=== PATIENT | female | born 2005 | race Caucasian/White ===

== ENCOUNTER → 2024-05-03 13:51 | Outpatient (REF) | payer BC, SELFPAY ==
[2024-05-03 15:40] LABS: % Basophils 0.5 % (0-2); % Eosinophils 1.3 % (0-6); % Immature Granulocytes 0.3 % (0-0.5); % Lymphocytes 22.2 % (20.5-51.1); % Neutrophils 70.7 % (42.2-75.2); Absolute Basophils 0.1 10^3/uL (0-0.2); Absolute Eosinophils 0.2 10^3/uL (0-0.7); Absolute Lymphocytes 2.7 10^3/uL (1.2-3.4); Absolute Monocytes 0.6 10^3/uL (0.1-0.6); Absolute Neutrophils 8.5 10^3/uL (1.4-6.5); Hematocrit 41.3 % (37.0-47.0); Hemoglobin 13.9 g/dL (12.0-16.0); Mean Corp Hgb Conc. 33.7 g/dL (33.0-37.0); Mean Corpuscular Hgb 28.4 pg (27.0-31.0); Mean Corpuscular Volume 84.5 fL (81.0-99.0); Nucleated Red Blood Cells % 0 %; Platelet Count 428 10^3/uL (130-400); Red Blood Cell Count 4.89 10^6/uL (4.20-5.40); Red Cell Dist. Width 13.2 % (11.5-14.5)
[2024-05-03 16:02] LABS: ALT (SGPT) 16 U/L (0-35); AST (SGOT) 18 U/L (14-36); Alkaline Phosphatase 61 U/L (38-126); Blood Urea Nitrogen 15 mg/dl (7-17); Calcium 10.1 mg/dl (8.4-10.2); Carbon Dioxide 27 mmol/L (22-30); Chloride 101 mmol/L (98-107); Glucose 85 mg/dl (70-99); Potassium 4.6 mmol/L (3.5-5.1); Sodium 140 mmol/L (135-145); Total Bilirubin 0.4 mg/dl (0.2-1.3); Total Protein 8.1 g/dl (6.3-8.2); eGFR > 60.00
[2024-05-03 16:30] LABS: TSH Reflex To Free T4 1.44 uIU/ml (0.47-4.68)
[2024-05-04 03:38] LABS: IgA 231 mg/dl (70-400)
[2024-05-04 14:58] LABS: tTG IgA Antibody 5.7 EU/ml (0-19); tTG IgG Antibody 11.3 EU/ml (0-19)
[2024-05-06 02:06] LABS: Endomysial IgA Antibody Titer <1:10 (<1:10)
== END ==
LOC: REG 13:51
PROVIDERS: ATTENDING PHYSICIAN Internal Medicine Gastroenterology; FAMILY PHYSICIAN Internal Medicine
DX: K52.9 Noninfective gastroenteritis and colitis, unspecified (principal)
CPT/HCPCS: 36415; 80053; 82784; 83516; 84443; 85025; 86140; 86231

== ENCOUNTER 2024-08-13 17:32 | Emergency (ER) | payer BC, SELFPAY ==
[2024-08-13] VITALS (7 sets, daily range): BP systolic 111–147; BP diastolic 61–90
[2024-08-13 19:23] LABS: % Basophils 0.6 % (0-2); % Eosinophils 0.7 % (0-6); % Immature Granulocytes 0.3 % (0-0.5); % Monocytes 8.4 % (1.7-9.3); Absolute Eosinophils 0.1 10^3/uL (0-0.7); Absolute Lymphocytes 1.7 10^3/uL (1.2-3.4); Absolute Monocytes 0.6 10^3/uL (0.1-0.6); Absolute Neutrophils 4.8 10^3/uL (1.4-6.5); Hematocrit 41.1 % (37.0-47.0); Hemoglobin 14.4 g/dL (12.0-16.0); Mean Corpuscular Hgb 28.2 pg (27.0-31.0); Mean Corpuscular Volume 80.6 fL (81.0-99.0); Mean Platelet Volume 9.5 fL (7.4-10.4); Nucleated Red Blood Cells % 0 %; Platelet Count 285 10^3/uL (130-400); Red Cell Dist. Width 13.1 % (11.5-14.5); White Blood Cell Count 7.2 10^3/uL (4.8-10.8)
[2024-08-13 19:41] LABS: ALT (SGPT) 20 U/L (0-35); AST (SGOT) 18 U/L (14-36); Albumin 4.2 g/dl (3.5-5.0); Alkaline Phosphatase 72 U/L (38-126); Blood Urea Nitrogen 14 mg/dl (7-17); Calcium 9.5 mg/dl (8.4-10.2); Carbon Dioxide 19 mmol/L (22-30); Chloride 106 mmol/L (98-107); Glucose 98 mg/dl (70-99); Potassium 3.9 mmol/L (3.5-5.1); Sodium 141 mmol/L (135-145); Total Bilirubin 0.7 mg/dl (0.2-1.3); Total Protein 7.5 g/dl (6.3-8.2); eGFR > 60.00
[2024-08-13 19:45] LABS: Monotest Negative (Negative)
[2024-08-13 19:52] LABS: HCG, Serum Qualitative Screen Negative
[2024-08-13 19:53] LABS: COVID-19 Antigen Negative (Negative)
--- NOTE | 2024-08-13 19:59 | ED.GENMED ---
History of Present Illness
General
Chief Complaint: Abdominal Symptoms
Source: patient and family (Mother and sister at bedside)
Exam Limitations: none
Time Seen by Provider: 08/13/24 19:23
Nursing documentation reviewed up to this point in time: agreed with
History of Present Illness
History of Present Illness:
Patient is a 19-year-old female presenting to the emergency department with 2 days of nausea, vomiting, and diarrhea. Patient reports waking up yesterday morning with vomiting which seem to be improving. She also has had multiple episodes of
nonbloody diarrhea which has persisted throughout today. Patient is concerned that she is becoming dehydrated as she has been unable to tolerate p.o. food/fluid intake. She did have a temp at home of 100 F. Patient denies any abdominal pain,
dysuria, chest pain, or shortness of breath. She did begin to have some pain in her upper back today.
Of note�patient states she was with her friend earlier this weekend who is displaying very similar symptoms. They were also found to be positive for mono.
Review of Systems
Review of Systems
Allergies reviewed?: Yes
All Other Systems: ROS reviewed and negative except as documented in HPI and ROS
Phy Exam
Physical Exam
Physical Exam:
Vitals: Mildly hypertensive, otherwise vital signs stable. Afebrile
General: Patient is very well appearing, no acute distress. Nontoxic appearing
Skin: Warm and dry, no rashes or lesions
Head: Normocephalic, atraumatic
Eyes: Sclera nonicteric. EOMs intact. No nystagmus.
Throat: Protecting airway
Neck: Normal ROM, no cervical spine tenderness, no meningismus
Cardiac: Regular rate and rhythm, no murmurs. Mild reproducible tenderness in mid upper back.
Pulm: Normal respiratory effort, no wheezes, rales, rhonchi heard on exam.
Abdomen: Abdomen soft. No abdominal tenderness. Specifically no tenderness McBurney's point. Negative Vitale sign. No CVA tenderness.
Extremities: No evidence of cyanosis or edema. Palpable DP pulses.
Neuro: AAOx3. Grossly intact.
Psychiatric: Normal affect.
Course
Orders/Labs/Results
Orders:
Orders
08/13/24 19:04
Complete Blood Count/With Diff Urgent
Comprehensive Metabolic Panel Urgent
HCG, Serum Qualitative Screen Urgent
Comment: ADD ON
Monotest Urgent
INF RAPID [Influenza A+B Rapid Molecular] Urgent
APPLE Source: Nasal Swab
Specimen Description:
08/13/24 19:11
COVID-19 Antigen Urgent
Source: Nasal Swab
08/13/24 19:33
Add On- LAB Urgent
Tests Added?: serum beta qual
08/13/24 19:53
0.9% Sodium Chloride 1000 ml [Nss] 1,000 ml IV BOLUS
Famotidine [Pepcid] 20 mg IV NOW STA
Ketorolac [Toradol] 15 mg IV NOW STA
Ondansetron Injectable [Zofran] 4 mg IV NOW STA
CR Chest - 2 Views Urgent
Comment:
Reason For Exam: Upper back pain
Abnormal Lab Results
08/13/24
19:04
MCV 80.6 L fL
(81.0-99.0)
Carbon Dioxide 19 L mmol/L
(22-30)
08/13/24 19:04
08/13/24 19:04
Vital Signs
Initial and Last Documented VS:
Initial Vital Signs
Temp Pulse Resp BP Pulse Ox
97.9 F 96 20 130/87 98
08/13/24 17:45 08/13/24 17:45 08/13/24 17:45 08/13/24 17:45 08/13/24 17:45
Last Documented Vital Signs
Temp Pulse Resp BP Pulse Ox
97.9 F 83 16 132/79 98
08/13/24 17:45 08/13/24 22:49 08/13/24 22:49 08/13/24 22:49 08/13/24 22:15
MDM/Problems Addressed
Differential Diagnosis Includes:
Not limited to: Viral gastroenteritis, colitis, acute viral syndrome, dehydration, electrolyte derangements, appendicitis, etc.
MDM/Problems Addressed:
Patient is a 19 y.o F presenting with two days of nausea, vomiting, and diarrhea associated with fevers at home. No abdominal pain, urinary symptoms, chest pain or shortness of breath. She does have minimal upper back discomfort which she noticed
today. Patient did have close contact with a friend who now is displaying very similar symptoms.
Vitals and physical exam as above. Patient overall well appearing in no apparent distress. Cardio/pulmonary assessment unremarkable. She does have very minimal reproducible tenderness in mid upper back, which I suspect to be likely musculoskeletal
in origin. Benign abdominal exam without focal tenderness. Labs were initiated in triage without any clinically significant abnormalities. There is no leukocytosis or left shift. No electrolyte abnormalities. Given patient afebrile with benign
abdominal exam and no leukocytosis, low suspicion for acute intra-abdominal infectious process. Do not feel CT warranted at this time. Will check CXR given upper back pain. Symptomatic treatment for now and reassess.
Update: In to reassess patient at bedside who is feeling much better. Her upper back pain has resolved completely with toradol. She is no longer nauseous and has had no episodes of vomiting. CXR without acute findings.
Update: Patient has received 1L NSS. Abdomen remains soft and nontender. Patient is well and comfortable appearing. She is tolerating water without vomiting. Given recent sick contact and benign abdominal tenderness � ultimately suspect viral
gastroenteritis. Ultimately �feel patient stable for discharge home. Return precautions discussed. She will follow w/ G.I. as scheduled. Patient and patient�s family comfortable w/ plan. All questions answered.
Chronic conditions affecting care:
N/A
Acute Exacerbation and/or Progression of Chronic Illness:
N/A
*Radiology
Radiology exam reviewed: preliminary read by ED provider (Chest x-ray reviewed by me-no acute abnormalities) and radiology read reviewed
*Pulse Oximetry
Patient hypoxic: no
*EKG
Interpreted by ED Provider?: NA
*Java Tech Lead Interpretation
Rate: Java Tech Lead- N/A
*Critical Care Note
Total Time (30-74mins, 75-104mins- exclusive of procedures): Not Applicable
ED Attending Note
-
Portions of this chart may have been created with voice recognition software.� Occasional wrong word or��sound alike� substitutions may have occurred due to the inherent limitations of voice recognition software.
Discharge Plan
Departure
Patient Disposition: Home (Routine Discharge)
Date of Disposition: 08/13/24
Time of Disposition: 22:17
Patient with high blood pressure during this ER visit?: No
Condition: Good
Covid-19: Not Applicable
Discharge Problem:
Nausea, vomiting, and diarrhea
Instructions: Diarrhea in teens and adults, Dehydration, Adult (DC), Nausea and Vomiting, Adult (DC)
Prescriptions:
New
ondansetron 4 mg tablet,disintegrating
4 mg PO Q8H PRN (Reason: nausea and vomiting) Qty: 5 0RF
Referrals:
Viky Medeiros MD [Active] - Keep scheduled appt
Kisha Arreguin NP [Family Provider] - Follow up in 5-7 days
Stand Alone Forms: Back to School
Activity Restrictions/Additional Instructions:
Return to the emergency department with any high fever, abdominal pain, intractable nausea, vomiting, diarrhea, concerns of severe dehydration, persistent loss of appetite, chest pain, shortness of breath worsening in current symptoms or any other
concerns
- Your lab work and chest x-ray showed no acute abnormalities today. Your viral testing was negative, along with mono. You were given IV fluids, IV Toradol, IV Zofran and IV Pepcid
- It is important stay well-hydrated. You can take OTC Pepcid over the next few days. A prescription for Zofran has been sent if you have any persistent nausea.
- I would recommend a bland diet over the next 2 days and slowly advance as tolerated.
- Follow-up with GI as scheduled. Please contact them tomorrow to let them know you were in the emergency department.
Monitor your symptoms closely and return to the emergency department with any acute worsening/new symptoms or any other concerns
Interventions
Interventions:
*Risk Screen - Suicide Last Done: 08/13/24 17:45
*General Assessment Last Done: 08/13/24 22:00
*Neglect/Abuse Screening Last Done: 08/13/24 22:00
*ED- Fall Risk Assessment Last Done: 08/13/24 22:00
*ED COVID-19 Vaccine History Last Done: 08/13/24 22:00
*Nursing Disposition Last Done: 08/13/24 22:53
XI-Miewcd-Ubmzyoagrs Assessment Last Done: 08/13/24 19:16
Discharge Date and Time
Discharge Date/Time: 08/13/24 22:54
Print Language: BRAZILIAN
[2024-08-13] MEDS: NSS 1000 IV (20:07)
[2024-08-13] MEDS: TORADOL 15 MG IV (20:07)
[2024-08-13] MEDS: PEPCID 20 MG IV (20:08)
[2024-08-13] MEDS: ZOFRAN 4 MG IV (20:08)
== END 2024-08-13 22:54 | disposition home or self-care (01) ==
LOC: EMR 17:32
PROVIDERS: Emergency Medicine; EMERGENCY PHYSICIAN Emergency Medicine; FAMILY PHYSICIAN Internal Medicine
DX: R11.2 Nausea with vomiting, unspecified (principal); R19.7 Diarrhea, unspecified
CPT/HCPCS: 99283; 96374; 96375; 96361; 71046; 80053; 84703; 85025; 86308; 87502; 87811

== ENCOUNTER → 2024-09-25 11:40 | Outpatient (REF) | payer BC, SELFPAY ==
[2024-09-25 12:17] LABS: % Basophils 0.7 % (0-2); % Eosinophils 1.1 % (0-6); % Immature Granulocytes 0.3 % (0-0.5); % Monocytes 4.7 % (1.7-9.3); % Neutrophils 67.2 % (42.2-75.2); Absolute Basophils 0.1 10^3/uL (0-0.2); Absolute Eosinophils 0.1 10^3/uL (0-0.7); Absolute Monocytes 0.5 10^3/uL (0.1-0.6); Absolute Neutrophils 7.8 10^3/uL (1.4-6.5); Hematocrit 40.2 % (37.0-47.0); Hemoglobin 13.8 g/dL (12.0-16.0); Mean Corp Hgb Conc. 34.3 g/dL (33.0-37.0); Mean Corpuscular Hgb 28.2 pg (27.0-31.0); Mean Corpuscular Volume 82.2 fL (81.0-99.0); Mean Platelet Volume 9.8 fL (7.4-10.4); Nucleated Red Blood Cells % 0 %; Platelet Count 418 10^3/uL (130-400); Red Blood Cell Count 4.89 10^6/uL (4.20-5.40); Red Cell Dist. Width 13.4 % (11.5-14.5); White Blood Cell Count 11.6 10^3/uL (4.8-10.8)
[2024-09-25 12:48] LABS: ALT (SGPT) 16 U/L (0-35); AST (SGOT) 15 U/L (14-36); Albumin 4.6 g/dl (3.5-5.0); Alkaline Phosphatase 64 U/L (38-126); Blood Urea Nitrogen 13 mg/dl (7-17); Calcium 10.1 mg/dl (8.4-10.2); Carbon Dioxide 21 mmol/L (22-30); Chloride 109 mmol/L (98-107); Glucose 91 mg/dl (70-99); HDL Cholesterol 59 mg/dl; LDL Cholesterol, Calculated 121 mg/dl; Potassium 4.6 mmol/L (3.5-5.1); Sodium 141 mmol/L (135-145); Total Bilirubin 0.5 mg/dl (0.2-1.3); Total Cholesterol 208 mg/dl (50-199); Triglyceride 143 mg/dl (10-149); Very Low Density Lipoprotein 28 mg/dl (0-30); eGFR > 60.00
[2024-09-25 13:17] LABS: TSH Reflex To Free T4 1.94 uIU/ml (0.47-4.68)
[2024-09-25 14:30] LABS: Glycohemoglobin (HgbA1c) 5.2 % (4.0-5.6)
== END ==
LOC: REG 11:40
PROVIDERS: ATTENDING PHYSICIAN Internal Medicine
DX: Z00.00 Encounter for general adult medical examination without abnormal findings (principal); K52.9 Noninfective gastroenteritis and colitis, unspecified; E66.01 Morbid (severe) obesity due to excess calories; Z68.43 Body mass index [BMI] 50.0-59.9, adult
CPT/HCPCS: 36415; 80053; 80061; 83036; 84443; 85025

== ENCOUNTER 2024-12-06 06:23 | Day surgery (SDC) | payer BC, SELFPAY ==
[2024-12-06 09:33] VITALS: BMI 54.8
[2024-12-06 09:34] VITALS: BMI 54.8
[2024-12-06 09:35] VITALS: BP 117/68
[2024-12-06 11:22] VITALS: BP 118/50
[2024-12-06 11:30] VITALS: BP 124/74
[2024-12-06 11:45] VITALS: BP 111/70
== END 2024-12-06 12:04 | disposition home or self-care (01) ==
LOC: SDS 06:23
PROVIDERS: ATTENDING PHYSICIAN Internal Medicine Gastroenterology
DX: K63.89 Other specified diseases of intestine (principal); R19.4 Change in bowel habit; Z83.79 Family history of other diseases of the digestive system
CPT/HCPCS: 45380; 88305

== ENCOUNTER → 2024-12-17 08:49 | Outpatient (REF) | payer BC, SELFPAY ==
[2024-12-23 06:03] LABS: Chlamydia trachomatis,ThinPrep Negative (Negative); Neisseria gonorrhoeae,ThinPrep Negative (Negative); Specimen Source Cervical
== END ==
LOC: CPAP 08:49
PROVIDERS: ATTENDING PHYSICIAN Nurse Practitioner Family
DX: Z01.411 Encounter for gynecological examination (general) (routine) with abnormal findings (principal)
CPT/HCPCS: 87491; 87591

== ENCOUNTER 2025-03-04 02:44 | Emergency (ER) | payer OTHER, SELFPAY ==
[2025-03-04 02:54] VITALS: BP 140/86
[2025-03-04 04:42] VITALS: BMI 53.7
--- NOTE | 2025-03-04 04:44 | EDRN ---
Tuesday pt developed strep throat symptoms, diarrhea. Pt started amoxicillin last night for strep throat that her aunt called into a pharmacy. Pt woke at 0100 vomiting with upper abdominal pain. Pain is still there but not as bad. Pt vomited
4-5 times. Last vomited 0130. No fever/cough. Pt had chills. Pt has sore throat and says she was not tested for strep - requests testing here today. No cp, sob, urinary symptoms, change in appetite. Pt adds she thinks she has an ear infection
in both ears and pt's back hurts.
[2025-03-04 04:51] VITALS: BP 112/63
--- NOTE | 2025-03-04 05:16 | ED.GENMED ---
History of Present Illness
<Anne Marie Durham PA-C - Last Filed: 03/04/25 07:58>
General
Chief Complaint: Abdominal Pain
Source: patient
Exam Limitations: none
Time Seen by Provider: 03/04/25 05:12
Nursing documentation reviewed up to this point in time: agreed with
History of Present Illness
History of Present Illness:
19-year-old female with past medical history of pre-Crohn's disease presents to the ER today with concerns of upper abdominal pain starting the past night, waking her up from sleep. She has associated nausea and vomiting. She reports that the
vomiting resolved but now she has a burning pain in her epigastric region extending down into the abdomen. She never had this before. She reports that it will radiate to the back. She reports difficulty breathing due to the severe and most of the
pain. She denies shortness of breath at present. She denies chest pain. She reports that for the sore throat she took 1 dose of amoxicillin last night but did not receive subsequent dose due to the vomiting. She has no history of intra or
abdominal surgeries. Currently she rates her pain a 5 out of 10 but reports that her pain was a 9 out of 10 during the peak episode. She reports some difficulty swallowing at times due to the throat pain. She did have a fever at home. She denies
any burning with urination, dysuria. Patient does take that bound but has not had this medication for 2 weeks and denies any recent dose increases.
Review of Systems
<Anne Marie Durham PA-C - Last Filed: 03/04/25 07:58>
Review of Systems
All Other Systems: ROS reviewed and negative except as documented in HPI and ROS
Phy Exam
<Anne Marie Durham PA-C - Last Filed: 03/04/25 07:58>
Physical Exam
Physical Exam:
General: Patient is well appearing and in no acute distress; non-toxic
Skin: Warm and dry, no rashes or lesions
Head: Normocephalic, atraumatic
Eyes: Sclera non-icteric. EOMs intact.
Ears: Bilateral TMs and external auditory canals free of erythema, purulent drainage, no TM bulging bilaterally, no mastoid tenderness bilaterally
Cardiac: Regular rate and rhythm, no murmurs
Mouth: Bilateral tonsillar hypertrophy with overlying erythema, scattered white exudates noted
Peripheral Vascular: No lower extremity swelling or edema
Pulm: Normal respiratory effort, no wheezes, rales, rhonchi
Abdomen: Epigastric tenderness to palpation noted, left lower abdominal tenderness noted, negative Vitale sign
Neuro: CN II-XII intact, no focal neurologic deficits.
Psychiatric: Appropriate mood and affect.
Course
<Anne Marie Durham PA-C - Last Filed: 03/04/25 07:58>
Orders/Labs/Results
Orders:
Orders
03/04/25 03:13
Test Result ONCE
03/04/25 04:54
Complete Blood Count/With Diff Urgent
Comprehensive Metabolic Panel Urgent
HCG, Serum Qualitative Screen Urgent
Lipase Urgent
Monotest Urgent
Comment: ADD ON
03/04/25 04:59
Rapid Strep Group A Urgent
APPLE Source: Throat/Pharynx
Specimen Description:
Date Specimen was Collected: 03/04/25
Time Specimen was Collected: 04:58
03/04/25 05:16
Electrocardiogram (*1) Urgent
Reason for Study: Chest Pain
03/04/25 05:17
Add On - Microbiology Routine
Tests Added?: throat culture
0.9% Sodium Chloride 500 ml [Nss] 500 ml IV BOLUS
Famotidine [Pepcid] 20 mg IV NOW STA
Pantoprazole [Protonix IV] 40 mg IV NOW STA
US Abdomen Complete/Upper Urgent
Comment:
Reason For Exam: epigastric pain
03/04/25 05:25
Add On- LAB Urgent
Tests Added?: monotest
03/04/25 06:29
Ketorolac [Toradol] 15 mg IV NOW STA
03/04/25 06:48
CT Abd/pelvis W Iv Cont Urgent
Comment:
Reason For Exam: left sided abdominal pain
03/04/25 07:14
Diphenhydramine [Benadryl] 50 mg IV NOW STA
Hydrocortisone Sod Succinate [Solu-Cortef] 200 mg IV NOW STA
03/04/25 07:15
Throat Culture [Throat Culture, Comprehensive] Urgent
APPLE Source: Throat/Pharynx
Specimen Description:
Date Specimen was Collected: 03/04/25
Time Specimen was Collected: 07:11
Abnormal Lab Results
03/04/25
04:54
WBC 18.3 H 10^3/uL
(4.8-10.8)
Hct 36.8 L %
(37.0-47.0)
Abs Immat Gran (auto) 0.1 H 10^3/uL
(0-0.05)
Absolute Neuts (auto) 15.6 H 10^3/uL
(1.4-6.5)
Absolute Monos (auto) 1.2 H 10^3/uL
(0.1-0.6)
Neutrophils % 85.2 H %
(42.2-75.2)
Lymphocytes % 6.6 L %
(20.5-51.1)
Glucose 121 H mg/dl
(70-99)
03/04/25 04:54
03/04/25 04:54
Vital Signs
Initial and Last Documented VS:
Initial Vital Signs
Temp Pulse Resp BP Pulse Ox
97.8 F 128 28 140/86 98
03/04/25 02:54 03/04/25 02:54 03/04/25 02:54 03/04/25 02:54 03/04/25 02:54
Last Documented Vital Signs
Temp Pulse Resp BP Pulse Ox
99.1 F 81 16 118/70 97
03/04/25 04:51 03/04/25 08:20 03/04/25 08:20 03/04/25 08:20 03/04/25 08:20
<Nain Coelho PA-C - Last Filed: 03/04/25 11:24>
Orders/Labs/Results
Orders:
Orders
03/04/25 03:13
Test Result ONCE
03/04/25 04:54
Complete Blood Count/With Diff Urgent
Comprehensive Metabolic Panel Urgent
HCG, Serum Qualitative Screen Urgent
Lipase Urgent
Monotest Urgent
Comment: ADD ON
03/04/25 04:59
Rapid Strep Group A Urgent
APPLE Source: Throat/Pharynx
Specimen Description:
Date Specimen was Collected: 03/04/25
Time Specimen was Collected: 04:58
03/04/25 05:16
Electrocardiogram (*1) Urgent
Reason for Study: Chest Pain
03/04/25 05:17
Add On - Microbiology Routine
Tests Added?: throat culture
0.9% Sodium Chloride 500 ml [Nss] 500 ml IV BOLUS
Famotidine [Pepcid] 20 mg IV NOW STA
Pantoprazole [Protonix IV] 40 mg IV NOW STA
US Abdomen Complete/Upper Urgent
Comment:
Reason For Exam: epigastric pain
03/04/25 05:25
Add On- LAB Urgent
Tests Added?: monotest
03/04/25 06:29
Ketorolac [Toradol] 15 mg IV NOW STA
03/04/25 06:48
CT Abd/pelvis W Iv Cont Urgent
Comment:
Reason For Exam: left sided abdominal pain
03/04/25 07:14
Diphenhydramine [Benadryl] 50 mg IV NOW STA
Hydrocortisone Sod Succinate [Solu-Cortef] 200 mg IV NOW STA
03/04/25 07:15
Throat Culture [Throat Culture, Comprehensive] Urgent
APPLE Source: Throat/Pharynx
Specimen Description:
Date Specimen was Collected: 03/04/25
Time Specimen was Collected: 07:11
Abnormal Lab Results
03/04/25
04:54
WBC 18.3 H 10^3/uL
(4.8-10.8)
Hct 36.8 L %
(37.0-47.0)
Abs Immat Gran (auto) 0.1 H 10^3/uL
(0-0.05)
Absolute Neuts (auto) 15.6 H 10^3/uL
(1.4-6.5)
Absolute Monos (auto) 1.2 H 10^3/uL
(0.1-0.6)
Neutrophils % 85.2 H %
(42.2-75.2)
Lymphocytes % 6.6 L %
(20.5-51.1)
Glucose 121 H mg/dl
(70-99)
03/04/25 04:54
03/04/25 04:54
Vital Signs
Initial and Last Documented VS:
Initial Vital Signs
Temp Pulse Resp BP Pulse Ox
97.8 F 128 28 140/86 98
03/04/25 02:54 03/04/25 02:54 03/04/25 02:54 03/04/25 02:54 03/04/25 02:54
Last Documented Vital Signs
Temp Pulse Resp BP Pulse Ox
99.1 F 81 16 118/70 97
03/04/25 04:51 03/04/25 08:20 03/04/25 08:20 03/04/25 08:20 03/04/25 08:20
<Anne Marie Durham PA-C - Last Filed: 03/04/25 07:58>
MDM/Problems Addressed
Differential Diagnosis Includes:
Differentials include biliary colic, gastritis, pancreatitis, colitis, strep pharyngitis, viral syndrome etc.
MDM/Problems Addressed:
19-year-old female presents to the ER today with concerns of an episode of abdominal pain, nausea, vomiting.
This woke her up from sleep at night.
Of note, she has a sore throat that started a few days ago and she is currently being treated with amoxicillin and she only had 1 dose
On exam, she has tonsillitis and epigastric tenderness
Burning abdominal pain improved with Protonix and Pepcid however reports that persistent pain is noted throughout the abdomen
Will give dose of Toradol
Leukocytosis noted
Ultrasound shows gallstones
Considering persistent pain on exam, leukocytosis, will send for CAT scan
Case signed out to Alfonso PUGA pending CT scan
Chronic conditions affecting care:
Crohn's disease
<Anne Marie Durham PA-C - Last Filed: 03/04/25 07:58>
*Pulse Oximetry
SaO2: 96
Oxygen Mode of Delivery: Room air
<Nain Coelho PA-C - Last Filed: 03/04/25 11:24>
*Radiology
Radiology exam reviewed: radiology read reviewed
*Pulse Oximetry
Patient hypoxic: no
*Critical Care Note
Total Time (30-74mins, 75-104mins- exclusive of procedures): Not Applicable
<Nain Coelho PA-C - Last Filed: 03/04/25 11:24>
Patient Management
Escalation/DeEscalation of care consider admission/obs:
7 AM: Received patient in signout pending CT scan results. On my initial evaluation of the patient she was resting comfortably and in no acute distress. She declines anything further for pain. We did need to pretreat patient with medication prior
to her CT scan but she was otherwise resting comfortably. CT scan ultimately came back showing a 3 cm cyst on the left ovary. Patient's pain was all in the upper part of her abdomen when she presented and has no pain in the left lower portion of
the abdomen/pelvis. I did discuss potential signs and symptoms of ovarian torsion and at this time we do feel it is reasonable to follow-up as an outpatient with her DAT IN[employer] for a follow-up ultrasound to ensure resolution of the cyst. Patient was
advised on return precautions given the gallstone finding we did discuss dietary modification as well as patient was abided with information for general surgeon to follow-up with. She is stable for discharge home and aware of return precautions.
ED Attending Note
<Anne Marie Durham PA-C - Last Filed: 03/04/25 07:58>
-
Portions of this chart may have been created with voice recognition software.� Occasional wrong word or��sound alike� substitutions may have occurred due to the inherent limitations of voice recognition software.
Discharge Plan
Departure
Patient Disposition: Home (Routine Discharge)
Date of Disposition: 03/04/25
Time of Disposition: 11:02
Patient with high blood pressure during this ER visit?: No
Discharge Problem:
Abdominal pain, Gallstone, Ovarian cyst
Instructions: Abdominal Pain
Prescriptions:
No Action
Zepbound 5 mg/0.5 mL Pen Injector
5 mg SC QWEEK
norethindrone-e.estradiol-iron [June FE 1.5/30 (28)] 1.5 mg-30 mcg (21)/75 mg (7) Tablet
1 tab PO DAILY
Referrals:
Gokul Davis MD [Active, Surgical]
Kisha Arreguin NP [Family Provider, Internal Medicine]
Stand Alone Forms: Back to School
Activity Restrictions/Additional Instructions:
Please finish your course of amoxicillin for your throat infection.
Interventions
Interventions:
*Risk Screen - Suicide Last Done: 03/04/25 02:54
*General Assessment Last Done: 03/04/25 04:42
*Neglect/Abuse Screening Last Done: 03/04/25 02:54
*ED- Fall Risk Assessment Last Done: 03/04/25 04:42
*ED COVID-19 Vaccine History Last Done: 03/04/25 04:42
*ED Influenza Vaccine History Last Done: 03/04/25 04:42
*Nursing Disposition Last Done: 03/04/25 11:23
GP-Npfrsp-Qfznvsrqnm Assessment Last Done: 03/04/25 05:37
Discharge Date and Time
Print Language: HEBREW
[2025-03-04 05:18] LABS: Hematocrit 36.8 % (37.0-47.0); Hemoglobin 12.4 g/dL (12.0-16.0); Mean Corp Hgb Conc. 33.7 g/dL (33.0-37.0); Mean Corpuscular Volume 82.1 fL (81.0-99.0); Nucleated Red Blood Cells % 0 %; Platelet Count 337 10^3/uL (130-400); Red Cell Dist. Width 13.6 % (11.5-14.5)
[2025-03-04] MEDS: PROTONIX IV 40 MG IV (05:28)
[2025-03-04] MEDS: NSS 500 IV (05:28)
[2025-03-04] MEDS: PEPCID 20 MG IV (05:32)
[2025-03-04 05:36] LABS: ALT (SGPT) 15 U/L (0-35); AST (SGOT) 20 U/L (14-36); Albumin 3.9 g/dl (3.5-5.0); Alkaline Phosphatase 57 U/L (38-126); Blood Urea Nitrogen 13 mg/dl (7-17); Calcium 9.0 mg/dl (8.4-10.2); Carbon Dioxide 23 mmol/L (22-30); Chloride 107 mmol/L (98-107); Estimated Creatinine Clearance > 125 ml/min; Glucose 121 mg/dl (70-99); Lipase 42 U/L (23-300); Potassium 4.2 mmol/L (3.5-5.1); Sodium 136 mmol/L (135-145); Total Protein 6.9 g/dl (6.3-8.2); eGFR > 60.00
[2025-03-04 05:38] LABS: HCG, Serum Qualitative Screen Negative
[2025-03-04] MEDS: TORADOL 15 MG IV (07:11)
--- NOTE | 2025-03-04 07:29 | EDRN ---
Pt is warming for IV VAT RN at this time. Had to TT as pt had pain when gave med and when flushed IV. No swelling.
[2025-03-04] MEDS: BENADRYL 50 MG IV (08:08)
[2025-03-04] MEDS: SOLU-CORTEF 200 MG IV (08:11)
[2025-03-04 08:20] VITALS: BP 118/70
--- NOTE | 2025-03-04 08:23 | EDRN ---
Per CT iodine allergy protocol pt premedicated and CT called to let them know that and when medicated.
[2025-03-04 11:05] VITALS: BP 122/64
== END 2025-03-04 11:23 | disposition home or self-care (01) ==
LOC: EMR 02:44
PROVIDERS: EMERGENCY PHYSICIAN Student in an Organized Health Care Education/Training Program; FAMILY PHYSICIAN Internal Medicine
DX: K50.90 Crohn's disease, unspecified, without complications (principal); K80.20 Calculus of gallbladder without cholecystitis without obstruction; N83.209 Unspecified ovarian cyst, unspecified side
CPT/HCPCS: 99284; 96374; 96375; 96361; 74177; 76700; 80053; 83690; 84703; 85025; 86308; 87070; 87880; 93005; Q9967